=== PATIENT | male | born 1975 | race Caucasian/White ===

== ENCOUNTER 2016-06-11 | Outpatient (CLI) | payer MEDICAID | END 2016-06-11 13:09 | disposition EMS.NT | DX: E16.2 Hypoglycemia, unspecified (principal) ==

== ENCOUNTER 2016-07-29 03:52 | Outpatient (CLI) | payer MEDICAID | END 2016-07-29 03:53 | disposition critical access hospital (66) | DX: R11.2 Nausea with vomiting, unspecified (principal) | CPT/HCPCS: A0425; A0427 ==

== ENCOUNTER 2016-07-29 04:10 | Inpatient (IN) | payer MEDICAID ==
[2016-07-29 04:52] LABS: BASOPHILS # (AUTO) 0.1 10^3/uL (0.0-0.1); BASOPHILS % (AUTO) 0.7 %; EOSINOPHILS % (AUTO) 0.1 %; HCT - HEMATOCRIT 44.5 % (42.0-52.0); HGB - HEMOGLOBIN 15.3 g/dL (14.0-18.0); LYMPHOCYTES # (AUTO) 1.4 10^3/uL (1.5-3.5); LYMPHOCYTES % (AUTO) 9.9 %; MEAN CORPUSCULAR HEMOGLOBIN 30.5 pg (27.0-31.0); MEAN CORPUSCULAR HGB CONC 34.3 g/dL (32.0-36.0); MEAN CORPUSCULAR VOLUME 88.8 fL (80.0-94.0); MONOCYTES # (AUTO) 0.5 10^3/uL (0.0-1.0); MONOCYTES % (AUTO) 3.6 %; NEUTROPHILS # (AUTO) 11.8 10^3/uL (1.5-6.6); NEUTROPHILS % (AUTO) 85.7 %; NUCLEATED RED BLOOD CELLS AUTO 0.1 /100WBC; RED BLOOD COUNT 5.01 10^6/uL (4.70-6.10); RED CELL DISTRIBUTION WIDTH 13.5 % (12.0-15.0); UNCORRECTED WHITE BLOOD COUNT 13.8 x10^3/uL; WHITE BLOOD COUNT 13.8 x10^3/uL (4.8-10.8)
[2016-07-29] MEDS ORDERED: INSULIN REGULAR HUMAN 100 UNIT/1 ML 10 ML MDV ONE ×2 (04:54→07:33)
[2016-07-29] MEDS ORDERED: SODIUM CHLORIDE 0.9% 1,000 ML IV ONE ×4 (05:05→08:33)
[2016-07-29] MEDS ORDERED: INSULIN REGULAR HUMAN 100 UNIT/1 ML 10 ML MDV IVP STA (05:05)
[2016-07-29 05:11] LABS: ALBUMIN/GLOBULIN RATIO 1.6 (1.0-2.2); BILIRUBIN,TOTAL 2.2 mg/dL (0.2-1.0); CALCIUM 9.5 mg/dL (8.5-10.3); CREATININE 1.6 mg/dL (0.6-1.2); POTASSIUM 5.4 mmol/L (3.5-5.0); TOTAL PROTEIN 6.7 g/dL (6.7-8.2)
[2016-07-29 05:51] LABS: BILIRUBIN,URINE NEGATIVE (NEGATIVE); PH,URINE 5.5 PH (5.0-7.5)
[2016-07-29 05:53] LABS: UA CHARGE (STRIP ONLY) YES; UR CULTURE IF IND NOT INDICATED
[2016-07-29 06:50] LABS: VBG PH 7.267 (7.31-7.41)
[2016-07-29 06:51] LABS: VBG BASE EXCESS -9.5 mmol/L (-2 - +2); VBG OXYGEN SATURATION 89.2 % (60-80); VBG TOTAL CO2 17.8 mmol/L (24-29)
[2016-07-29] MEDS ORDERED: INSULIN REGULAR HUMAN 100 UNIT/1 ML 10 ML MDV SUBQ STA ×2 (07:13→07:25)
--- NOTE | 2016-07-29 07:57 | ED Physician Documentation ---
PD HPI ABD PAIN - Stated complaint Stated Complaint: HYPERGLYCEMIA - Chief complaint Chief Complaint: Abd Pain - History obtained from History obtained from: Patient, EMS - History of Present Illness Timing - onset: How many days ago (2) Timing - duration: Days (2) Timing - details: Gradual onset Quality: Other (Mild abdominal discomfort.) Associated symptoms: Nausea, Vomiting. No: Fever, Diarrhea, Dysuria, Chest pain Similar symptoms before: Has not had sx before - Treatment prior to arrival Treatment prior to arrival: Medics established IV access and began administering normal saline IV. Prehospital fingerstick blood sugar was elevated at 517. - Additional information Additional information: The patient is a 40-year-old insulin-dependent diabetic male who presents via ambulance complaining of abdominal discomfort and vomiting. He has been vomiting for the past 2 days. He denies fever, diarrhea, or dysuria. He denies cough or shortness of breath. Paramedics performed fingerstick blood sugar and found it elevated at 517. They established IV access and administered normal saline 450 mL IV. The patient has not taken his Lantus for the past 3 days because he misplaced it and has not been able to find. He denies history of similar symptoms in the past. Review of his medical record reveals previous emergency department visit with hypoglycemia and a hypoglycemic seizure 7 months ago. Review of Systems Constitutional: denies: Fever Eyes: denies: Irritation Nose: denies: Congestion Throat: denies: Sore throat Cardiac: denies: Chest pain / pressure Respiratory: denies: Dyspnea, Cough GI: reports: Abdominal Pain, Nausea, Vomiting. denies: Diarrhea : denies: Dysuria Skin: denies: Rash Musculoskeletal: denies: Back pain Neurologic: denies: Focal weakness, Numbness, Headache PD PAST MEDICAL HISTORY - Past Medical History Past Medical History: Yes Cardiovascular: None Respiratory: None Endocrine/Autoimmune: Type 2 diabetes - Past Surgical History Past Surgical History: Yes Ortho: Amputation (Left BKA.) - Present Medications Home Medications: Ambulatory Orders Medication Instructions Recorded Confirmed Insulin Aspart (Vial) [NovoLOG] 12/25/15 Insulin Glargine [Lantus] 35 units SUBQ DAILY 12/25/15 - Allergies Allergies/Adverse Reactions: Allergies Allergy/AdvReac Type Severity Reaction Status Date / Time methylphenidate HCl * Allergy Unknown Verified 07/29/16 04:22 [From Ritalin] - Social History Does the pt smoke?: Yes Smoking Status: Current every day smoker Does the pt drink ETOH?: No Does the pt have substance abuse?: Yes - Immunizations Immunizations are current?: Yes - POLST Patient has POLST: No PD ED PE NORMAL - Vitals Vital signs reviewed: Yes (Mildly tachycardic initially.) - General General: Alert and oriented X 3, Well developed/nourished, Other (Appears fatigued.) - HEENT HEENT: Atraumatic, EOMI, Moist mucous membranes, Pharynx benign - Neck Neck: Supple, no meningeal sign, No adenopathy, No JVD - Cardiac Cardiac: No murmur, Other (Slightly rapid rate, regular rhythm.) - Respiratory Respiratory: No respiratory distress, Clear bilaterally - Abdomen Abdomen: Soft, Non tender, No organomegaly - Back Back: No CVA TTP - Derm Derm: No rash - Extremities Extremities: No edema, No calf tenderness / cord, Other (Left BKA, with prosthesis.) - Neuro Neuro: Alert and oriented X 3, No motor deficit, Normal speech Results - Vitals Vitals: Vital Signs - 24 hr 07/29/16 07/29/16 07/29/16 04:10 04:44 05:49 Temperature 36.7 C Heart Rate 109 H 110 H 115 H Respiratory 16 16 16 Rate Blood Pressure 121/72 131/72 H 143/85 H O2 Saturation 100 100 99 07/29/16 07/29/16 06:30 07:30 Temperature Heart Rate 117 H 113 H Respiratory 16 20 Rate Blood Pressure 150/86 H 132/73 H O2 Saturation 100 97 Oxygen O2 Source Room air - Labs Labs: Laboratory Tests 07/29/16 07/29/16 07/29/16 04:45 04:45 05:47 WBC 13.8 H RBC 5.01 Hgb 15.3 Hct 44.5 MCV 88.8 MCH 30.5 MCHC 34.3 RDW 13.5 Plt Count 261 MPV 9.0 Neut # 11.8 H Lymph # 1.4 L [place] # 0.5 Eos # 0.0 Baso # 0.1 Absolute Nucleated RBC 0.01 Nucleated RBCs 0.1 VBG pH VBG pCO2 VBG pO2 VBG HCO3 VBG Total CO2 VBG O2 Saturation VBG Base Excess Sodium 133 L Potassium 5.4 H Chloride 93 L Carbon Dioxide 15 L Anion Gap 25.0 H BUN 41 H Creatinine 1.6 H Estimated GFR (MDRD) 48 L Glucose 672 H* Lactic Acid Calcium 9.5 Total Bilirubin 2.2 H AST 35 ALT 86 H Alkaline Phosphatase 106 Total Protein 6.7 Albumin 4.1 Globulin 2.6 Albumin/Globulin Ratio 1.6 Lipase 16 L Urine Color YELLOW Urine Clarity CLEAR Urine pH 5.5 Ur Specific [place] 1.020 Urine Protein NEGATIVE Urine Glucose (UA) >=1000 H Urine Ketones >=80 H Urine Occult Blood NEGATIVE Urine Nitrite NEGATIVE Urine Bilirubin NEGATIVE Urine Urobilinogen 0.2 (NORMAL) Ur Leukocyte Esterase NEGATIVE Ur Microscopic Review NOT INDICATED Urine Culture Comments NOT INDICATED 07/29/16 07/29/16 06:01 06:47 WBC RBC Hgb Hct MCV MCH MCHC RDW Plt Count MPV Neut # Lymph # [place] # Eos # Baso # Absolute Nucleated RBC Nucleated RBCs VBG pH 7.267 L VBG pCO2 37.3 L VBG pO2 56.3 H VBG HCO3 16.6 L VBG Total CO2 17.8 L VBG O2 Saturation 89.2 H VBG Base Excess -9.5 L Sodium Potassium Chloride Carbon Dioxide Anion Gap BUN Creatinine Estimated GFR (MDRD) Glucose Lactic Acid 1.4 Calcium Total Bilirubin AST ALT Alkaline Phosphatase Total Protein Albumin Globulin Albumin/Globulin Ratio Lipase Urine Color Urine Clarity Urine pH Ur Specific [place] Urine Protein Urine Glucose (UA) Urine Ketones Urine Occult Blood Urine Nitrite Urine Bilirubin Urine Urobilinogen Ur Leukocyte Esterase Ur Microscopic Review Urine Culture Comments PD MEDICAL DECISION MAKING - ED course Complexity details: reviewed old records, reviewed results, re-evaluated patient , considered differential, d/w patient ED course: The patient's presentation is significant for hyperglycemia with mild ketoacidosis, with initial blood sugar of 672 and a venous pH of 7.27. Lactate level is within the normal range at 1.4. Chemistry panel reveals an elevated BUN of 41 and a creatinine of 1.6, and a low bicarbonate of 15. His bilirubin is slightly elevated at 2.2. Other liver enzymes are normal with an AST of 35, ALT 86 and an alkaline phosphatase of 106. Lipase is normal at 16. The cause of his hypoglycemia is diabetes without taking his insulin for the past 3 days. There is no evidence to suggest an acute infectious process such as pneumonia or urinary tract infection. Treatment in the emergency department included administration of normal saline 3 L IV, insulin 10 units IV. Over a three-hour period of time his blood sugar went from a high at 672, down to 414. An additional 5 units of regular insulin was administered subcutaneously.Repeat blood sugar one hour later with was 356. The patient remains tachycardic with a pulse of 116. He is drowsy, but awakens easily and is coherent when awakened. I discussed his condition with Dr. Chávez, who will admit him on observation status for further evaluation and treatment. Departure - Departure Disposition: ED Place in Observation Clinical Impression: Dehydration Diabetic ketoacidosis associated with type 2 diabetes mellitus Qualifiers: Diabetes mellitus complication detail: without coma Qualified Code(s): E13.10 - Other specified diabetes mellitus with ketoacidosis without coma Condition: Stable
[2016-07-29] MEDS ORDERED: ONDANSETRON 4 MG/2 ML VIAL IVP PRN (08:46)
[2016-07-29] MEDS ORDERED: ACETAMINOPHEN 325 MG TABLET PO PRN (08:46)
[2016-07-29] MEDS ORDERED: HYDROcod/ACETAM 5/325 MG TABLET PO PRN (08:46)
[2016-07-29] MEDS ORDERED: SODIUM CHLORIDE FLUSH 0.9% 10 ML SYRINGE IVP PRN (08:46)
[2016-07-29] MEDS ORDERED: ONDANSETRON ODT 4 MG TABLET TL PRN (08:46)
[2016-07-29] MEDS ORDERED: INSULIN REGULAR HUMAN 100 UNIT in SODIUM CHLORIDE 0.9% 100ML 99 ML IV SCH (09:00)
[2016-07-29] MEDS: SODIUM CHLORIDE 0.9% 1,000 ML IV SCH ×2 (09:46→12:00)
[2016-07-29 09:59] LABS: VBG BASE EXCESS -7.5 mmol/L (-2 - +2); VBG OXYGEN SATURATION 93.4 % (60-80); VBG PH 7.315 (7.31-7.41); VBG TOTAL CO2 18.9 mmol/L (24-29)
[2016-07-29 10:01] LABS: BASOPHILS # (AUTO) 0.2 10^3/uL (0.0-0.1); BASOPHILS % (AUTO) 0.8 %; EOSINOPHILS % (AUTO) 0.1 %; HCT - HEMATOCRIT 41.1 % (42.0-52.0); HGB - HEMOGLOBIN 14.7 g/dL (14.0-18.0); LYMPHOCYTES # (AUTO) 2.2 10^3/uL (1.5-3.5); LYMPHOCYTES % (AUTO) 11.7 %; MEAN CORPUSCULAR HEMOGLOBIN 30.6 pg (27.0-31.0); MEAN CORPUSCULAR HGB CONC 35.8 g/dL (32.0-36.0); MEAN CORPUSCULAR VOLUME 85.5 fL (80.0-94.0); MEAN PLATELET VOLUME 8.6 fL (7.4-11.4); MONOCYTES # (AUTO) 1.3 10^3/uL (0.0-1.0); MONOCYTES % (AUTO) 6.6 %; NEUTROPHILS # (AUTO) 15.4 10^3/uL (1.5-6.6); NEUTROPHILS % (AUTO) 80.8 %; RED BLOOD COUNT 4.81 10^6/uL (4.70-6.10); RED CELL DISTRIBUTION WIDTH 13.3 % (12.0-15.0); UNCORRECTED WHITE BLOOD COUNT 19.1 x10^3/uL; WHITE BLOOD COUNT 19.1 x10^3/uL (4.8-10.8)
[2016-07-29 10:13] LABS: CALCIUM 8.9 mg/dL (8.5-10.3); CREATININE 1.2 mg/dL (0.6-1.2); MAGNESIUM 1.9 mg/dL (1.7-2.8); POTASSIUM 4.4 mmol/L (3.5-5.0)
[2016-07-29 10:14] LABS: HEMOGLOBIN A1C 1.35 g/dL
[2016-07-29 11:24] LABS: CALCIUM 8.6 mg/dL (8.5-10.3); CREATININE 1.2 mg/dL (0.6-1.2); MAGNESIUM 1.7 mg/dL (1.7-2.8); POTASSIUM 3.9 mmol/L (3.5-5.0)
--- NOTE | 2016-07-29 12:23 | HISTORY & PHYSICAL EXAMINATION ---
DATE OF ADMISSION: 07/29/2016 PRIMARY CARE PROVIDER: Anthony Rogel ADMITTING PROVIDER: Melissa Chávez MD CHIEF COMPLAINT: Nausea and vomiting in a patient who is a type 1 diabetic. HISTORY OF PRESENT ILLNESS: The patient is a 40-year-old white male who has type 1 diabetes since the age of 20. He has neuropathy. Denies retinopathy. He says that he usually takes good care of himself and that his sugar is usually under control. There are no glycosylated hemoglobin in the EMR for me to compare to, other than the one today, which is 10.1. He has broken up with his girlfriend. He has been living with her for over a year. He has been sad. D enies suicidal ideation, denies hallucinations. In his adjustment reaction, he has become depressed a nd "not paying attention to things" so he has misplaced his Concerta and his insulin, and has not had them for several days. Definitely misplacing the Concerta allowed his attention to get even more non focused. He started having nausea, fatigue a few days ago, yesterday started having abdominal pain an d with increasing retching. Overnight he has been having nonstop vomiting. He was seen in the emergen cy room by Dr. Herrera where he was hyponatremic, hyperkalemic, an anion gap of 25, and a random glucos e of 672. He received 3-4 liters of IV fluids in the emergency room. Repeat labs showed an anion gap of 14, and a random glucose of 345. He did receive insulin 10 units IV push once, then subcutaneous i nsulin twice with close to 3 liters IV wide open. This has allowed the sugar to come down to 345. Since he is still nauseated, unable to really take care of himself from lethargy and fatigue, sugars are still high, the patient is now admitted for DKA. PAST MEDICAL HISTORY 1. Type 1 diabetes mellitus, present since age 20. 2. ADD. 3. Fracture of left ankle. No treatment for quite some time as he walked around on it and resulted in infection and ended up with a left BKA. 4. History of MRSA of left finger, status post debridement and IV antibiotics. ALLERGIES: METHYLPHENIDATE. MEDICATIONS 1. Methylphenidate. Unclear as to why it is listed as an allergy when he takes methylphenidate extend ed release 72 mg daily. 2. Lantus 35 units subcutaneous daily. 3. NovoLog sliding scale insulin a.c. t.i.d. with meals, not taken for several days as well as the La ntus. SOCIAL HISTORY: Used to do cannabis, states he has not done it in a long time. Denies recreational mendoza bstance abuse in the form of cocaine, heroin, LSD, methamphetamines. He has smoked since the age of [age] and does up to 1 pack per day. Trying to stop and he says that October 18 is his drop date. He l ruth in his own apartment and is independent with regards to activities of daily living, managing his finances and transportation. He was born in [place], was an [employer] br[employer] and lived all ov er the world. Not , has no children. FAMILY HISTORY: He is adopted and he does not know his parents. He has no siblings nor do es he have any children. REVIEW OF SYSTEMS GENERAL: Denies any generalized constitutional complaints of fever, chills, sweats, weight loss. ENT: Denies glaucoma or cataracts. Denies deafness. Denies bad dentition. No facial droop, no slurred speech, no headaches, no blurred vision. PULMONARY: Denies coughing, wheezing, chronic bronchitis history, allergy history. No chest congestio n. CARDIAC: Denies edema, chest pain, palpitations. He has no history of valvular heart disease. He does note that over the last few years he has had a definite decrease in cardiopulmonary endurance just b ecause he does not do very much. So now when he tries to do anything, he gets easily fatigued. GASTROINTESTINAL: Has bad indigestion at times. No history of ulcers, diarrhea, abdominal pain, blood in his stool. GENITOURINARY: Decreased stream, increased frequency but that is chronic for him, says from his diabe sophie. He has no hematuria, no dysuria. No history of sexually transmitted diseases. JOINTS: Hurts all the time. He feels like he has juvenile rheumatoid arthritis, but has never been offered any treatmen t other than aspirin. Everything hurts. His neck and hands, elbows, shoulders, knees, hips. SKIN: Has severe dry skin, especially over his kneecaps that get really rough and thick, and he uses a prescribed cream for that. Denies any new lesions, rashes. PSYCHIATRIC: While he is sad and definitely depressed about losing his girlfriend, he is very clear s everal times that he is not suicidal. No hallucinations. DIRECTIONAL DRILLER: Denies history of memory loss. Had a seizure last summer because he did not eat and took his ins ulin so his sugar bottomed to 30 and he seized. He has not done that since. He gets lightheaded when he gets up and walks too fast and his vision will start to black out, but he sits down. He has never formally passed out with that. No memory loss. PHYSICAL EXAMINATION GENERAL: I am seeing the patient in ICU after he has been transferred from the emergency room. He is sleepy, cranky and really wants to get some sleep since he has been up all night long vomiting. Never theless, he is alert, oriented, able to follow 2-step commands, no slurred speech and a lucid histori an. He is a very thin, slender, pale, young white male who looks older than stated age. VITAL SIGNS: Temperature is 37.2, pulse 114, blood pressure 162/105, respirations 13 and nonlabored, and he is 98% on room air. HEAD AND NECK: Unshaven face, male pattern baldness. HEENT: Pupils are reactive. Sclerae are nonicteric, not muddy. Tongue and oral mucosa are quite dry. Lips are cracked, but no lesions. NECK: Shotty adenopathy without goiter or bruits. LUNGS: Clear to auscultation and percussion. He is not tachypneic. No crackles, rhonchi, or wheezing. CARDIOVASCULAR: PMI is tachycardic with a regular rate and rhythm. PMI normally placed. No murmur. ABDOMEN: Firm musculature, there is no obesity. No hepatomegaly. Normal bowel sounds. No tenderness. EXTREMITIES: Very thin, almost gaunt. Right leg has no clubbing, cyanosis, or edema. The skin over hi s knees is very rough and thick. He has a left BKA and the stump is clean and intact. He has a good d orsalis pedis pulse on the right leg. NEUROLOGICAL: He is alert and oriented to person, place and time. Follows 2-step commands. He has no focal deficits. No tremors. No cellularity. LABORATORIES: Initial sodium at 4:45 this morning was 133, potassium 5.4, BUN 41, creatinine 1.6, ani on gap 25, carbon dioxide 15, random glucose 672, lactic acid 1.4, total bilirubin 2.2, AST 3.5, ALT 86. A1c is 10.1%. With repeat after the fluids and IV push insulin and subcutaneous insulin, his sodi um is 137, potassium 4.4, carbon dioxide 19, anion gap 14, BUN 33, creatinine 1.2. Random glucose now 345. Venous blood gas is 7.26 with a bicarbonate of 16.6, base excess -9.5. After the aggressive gabby atment, venous blood gas is now 7.3, bicarbonate 17.8, base excess -7.5. White cell count was 13.8 an d now 19.1. Hemoglobin 15.3, 44.5. Urinalysis has glucosuria and ketonuria, but no infection. ASSESSMENT/PLAN 1. Diabetic ketoacidosis (DKA), type 1, in an uncontrolled diabetic who is insulin requiring. DKA is a result of noncompliance from lack of medication. We will place in ICU for insulin drip. Monitor wit h electrolyte protocol and supplement his electrolytes as needed with calcium, magnesium, phosphorus, as well as potassium being monitored. Transition to his regular schedule of Lantus and short-acting insulin once at goal. 2. Dehydration on physical exam with elevation of BUN and creatinine. Even though he has received 3-1 /2, close to 4 liters, oral exam still shows significant dehydration. BUN and creatinine have improve d. 3. Hypertension. No history of hypertension in the past. Not on any antihypertensives. Start TIFFANIE inhi bitor. Check urine tox screen. 4. History of methicillin-resistant Staphylococcus aureus (MRSA). No treatment at this time, but jeannie cy implemented with regard to MRSA positive patients. 5. Deep venous thrombosis prophylaxis. KALIE silveira. 6. FULL CODE STATUS. JOB #: [id number] EXT JOB #:[id number]
[2016-07-29 13:25] LABS: CALCIUM 8.4 mg/dL (8.5-10.3); CREATININE 0.9 mg/dL (0.6-1.2); MAGNESIUM 1.7 mg/dL (1.7-2.8); POTASSIUM 3.8 mmol/L (3.5-5.0)
[2016-07-29] MEDS: SODIUM CHLORIDE FLUSH 0.9% 10 ML SYRINGE IVP SCH ×2 (13:47→22:11)
[2016-07-29] MEDS ORDERED: DEXTROSE GEL 37.5 GM TUBE PO PRN (14:23)
[2016-07-29] MEDS ORDERED: DEXTROSE 5% 1,000 ML IV PRN (14:23)
[2016-07-29] MEDS ORDERED: DEXTROSE 50% ABBOJECT 25 GM/50 ML SYRINGE IVP PRN (14:23)
[2016-07-29] MEDS ORDERED: GLUCAGON 1 MG/ML VIAL SUBQ PRN (14:23)
[2016-07-29] MEDS ORDERED: POTASSIUM CHLOR 10 MEQ/100 ML 100 ML IV SCH (15:00)
[2016-07-29] MEDS ORDERED: POTASSIUM CHLORIDE INJ 40 MEQ in SODIUM CHLORIDE 0.9% 1,000 ML IV SCH ×2 (15:00→16:00)
[2016-07-29] MEDS: INSULIN GLARGINE 300 UNIT/3 ML PEN SUBQ SCH ×2 (15:04→22:09)
[2016-07-29] MEDS: INSULIN ASPART 300 UNIT/3 ML PEN SUBQ SCH ×2 (16:45→22:08)
--- NOTE | 2016-07-29 18:34 | PROVIDER PROGRESS NOTE ---
Subjective - Prog Note Date Prog Note Date: 07/29/16 Prog Note Time: 18:32 - Subjective Pt reports feeling: Improved Subjective: he's been able to sleep. off insulin drip this afternoon. glucose 87 before dinner right now. iVF rate dropped from 0.9 NS at 500 cc/hr to 0.9 with 40 meq of K at 100 cc/hr. Received over 4 liters total and has voided 2 times up to 700 cc. BP is high. Now he tells RN that he's been noncompliant for a MONTH, not just this week. Also has Rx for lisinopril that he never filled and isn't on. Current Medications - Current Medications Current Medications: Active Medications Acetaminophen (Tylenol) 650 mg PO Q4H PRN PRN Reason: Pain 1 to 4 Last Admin: 07/29/16 17:10 Dose: 650 mg Acetaminophen/Hydrocodone Bitart ([place] 5/325) 1 tab PO Q4H PRN PRN Reason: Pain 5 to 7 Dextrose (Dextrose) 20 - 50 ml IVP ONCE PRN PRN Reason: BG Less than 70 Stop: 08/28/16 14:22 Glucagon (Glucagen) 1 mg SUBQ ONCE PRN PRN Reason: BG <70 and no PO or IV access Stop: 08/28/16 14:22 Glucose (Glutose) 37.5 - 75 gm PO ONCE PRN PRN Reason: BG Less than 70 Stop: 08/28/16 14:22 Dextrose (D5w) 1,000 mls @ 100 mls/hr IV .Q10H PRN PRN Reason: BG 50 - 69 Stop: 08/28/16 14:22 Potassium Chloride 40 meq/ (Sodium Chloride) 1,020 mls @ 100 mls/hr IV .[id number] [facility] Stop: 07/30/16 02:11 Last Admin: 07/29/16 16:09 Dose: 100 mls/hr Insulin Aspart (Novolog) 3 - 11 unit SUBQ 0800,1200,1700,2100 [facility] PRN Reason: Protocol Last Admin: 07/29/16 16:45 Dose: Not Given Insulin Glargine (Lantus Solostar) 35 unit SUBQ QPM [facility] Last Admin: 07/29/16 15:04 Dose: 35 unit Lisinopril (Zestril) 10 mg PO DAILY [facility] Ondansetron HCl (Zofran Odt) 4 mg TL Q6H PRN PRN Reason: Nausea / Vomiting Ondansetron HCl (Zofran Inj) 4 mg IVP Q6H PRN PRN Reason: Nausea / Vomiting Sodium Chloride (Normal Saline Flush 0.9%) 10 ml IVP PRN PRN PRN Reason: NEEDED PER PROVIDER ORDERS Sodium Chloride (Normal Saline Flush 0.9%) 10 ml IVP Q8HR [facility] Last Admin: 07/29/16 13:47 Dose: 10 ml Insulin Aspart (Vial) [NovoLOG] 7 - 15 units SUBQ TIDWM 12/25/15 Insulin Glargine [Lantus] 35 units SUBQ DAILY 12/25/15 Methylphenidate HCl [Concerta] 72 mg PO DAILY 07/29/16 Objective - Vital Signs/Intake & Output Reviewed Vital Signs: Yes Vital Signs: Vital Signs Temp Pulse Resp BP Pulse Ox 07/29/16 18:00 98 14 159/99 H 97 07/29/16 16:47 109 H 16 146/82 H 99 07/29/16 16:00 37.2 C 102 H 14 164/97 H 98 07/29/16 15:00 107 H 16 143/84 H 98 Intake & Output: Intake & Output 07/26/16 07/27/16 07/28/16 07/29/16 22:59 22:59 23:59 23:59 Intake Total 4410 Output Total 1550 Balance 2860 - Objective General Appearance: positive: No acute distress, Alert Eyes Bilateral: positive: PERRL ENT: positive: Dry mucous membranes Neck: positive: No JVD Respiratory: positive: Chest non-tender. negative: Wheezes, Rales, Rhonchi Cardiovascular: positive: Regular rate & rhythm, Tachycardia Abdomen: positive: Non-tender, No organomegaly, Nml bowel sounds, No distention Skin: positive: Warm, Dry Extremities: positive: Non-tender, Full ROM, No pedal edema Neurologic/Psychiatric: positive: Oriented x3, CN's nml (2-12), Motor nml - Lab Results Fish Bones: 07/29/16 09:53 07/29/16 13:10 Other Labs: Lab Results x24hrs 07/29/16 07/29/16 07/29/16 Range/Units 13:10 11:56 10:58 WBC (4.8-10.8) x10^3/uL RBC (4.70-6.10) 10^6/uL Hgb (14.0-18.0) g/dL Hct (42.0-52.0) % MCV (80.0-94.0) fL MCH (27.0-31.0) pg MCHC (32.0-36.0) g/dL RDW (12.0-15.0) % Plt Count (130-450) 10^3/uL MPV (7.4-11.4) fL Neut # (1.5-6.6) 10^3/uL Lymph # (1.5-3.5) 10^3/uL [place] # (0.0-1.0) 10^3/uL Eos # (0.0-0.7) 10^3/uL Baso # (0.0-0.1) 10^3/uL Absolute Nucleated RBC x10^3/uL Nucleated RBCs /100WBC VBG pH (7.31-7.41) VBG pCO2 (41-51) mmHg VBG pO2 (25-47) mmHg VBG HCO3 (23-28) mmol/L VBG Total CO2 (24-29) mmol/L VBG O2 Saturation (60-80) % VBG Base Excess (-2 - +2) mmol/L Sodium 137 137 (135-145) mmol/L Potassium 3.8 3.9 (3.5-5.0) mmol/L Chloride 106 104 (101-111) mmol/L Carbon Dioxide 22 19 L (21-32) mmol/L Anion Gap 9.0 14.0 H (6-13) BUN 26 H 31 H (6-20) mg/dL Creatinine 0.9 1.2 (0.6-1.2) mg/dL Estimated GFR (MDRD) 94 67 L (>89) Glucose 169 H 228 H 284 H (70-100) mg/dL Glycated Hemoglobin (4.6-6.2) % Estim Average Glucose (70-100) Calcium 8.4 L 8.6 (8.5-10.3) mg/dL Magnesium 1.7 1.7 (1.7-2.8) mg/dL 07/29/16 07/29/16 07/29/16 Range/Units 09:53 09:53 09:53 WBC (4.8-10.8) x10^3/uL RBC (4.70-6.10) 10^6/uL Hgb (14.0-18.0) g/dL Hct (42.0-52.0) % MCV (80.0-94.0) fL MCH (27.0-31.0) pg MCHC (32.0-36.0) g/dL RDW (12.0-15.0) % Plt Count (130-450) 10^3/uL MPV (7.4-11.4) fL Neut # (1.5-6.6) 10^3/uL Lymph # (1.5-3.5) 10^3/uL [place] # (0.0-1.0) 10^3/uL Eos # (0.0-0.7) 10^3/uL Baso # (0.0-0.1) 10^3/uL Absolute Nucleated RBC x10^3/uL Nucleated RBCs /100WBC VBG pH 7.315 (7.31-7.41) VBG pCO2 35.7 L (41-51) mmHg VBG pO2 65.6 H (25-47) mmHg VBG HCO3 17.8 L (23-28) mmol/L VBG Total CO2 18.9 L (24-29) mmol/L VBG O2 Saturation 93.4 H (60-80) % VBG Base Excess -7.5 L (-2 - +2) mmol/L Sodium 137 (135-145) mmol/L Potassium 4.4 (3.5-5.0) mmol/L Chloride 104 (101-111) mmol/L Carbon Dioxide 19 L (21-32) mmol/L Anion Gap 14.0 H (6-13) BUN 33 H (6-20) mg/dL Creatinine 1.2 (0.6-1.2) mg/dL Estimated GFR (MDRD) 67 L (>89) Glucose 345 H (70-100) mg/dL Glycated Hemoglobin 10.1 H (4.6-6.2) % Estim Average Glucose 243 H (70-100) Calcium 8.9 (8.5-10.3) mg/dL Magnesium 1.9 (1.7-2.8) mg/dL 07/29/16 Range/Units 09:53 WBC 19.1 H (4.8-10.8) x10^3/uL RBC 4.81 (4.70-6.10) 10^6/uL Hgb 14.7 (14.0-18.0) g/dL Hct 41.1 L (42.0-52.0) % MCV 85.5 (80.0-94.0) fL MCH 30.6 (27.0-31.0) pg MCHC 35.8 (32.0-36.0) g/dL RDW 13.3 (12.0-15.0) % Plt Count 254 (130-450) 10^3/uL MPV 8.6 (7.4-11.4) fL Neut # 15.4 H (1.5-6.6) 10^3/uL Lymph # 2.2 (1.5-3.5) 10^3/uL [place] # 1.3 H (0.0-1.0) 10^3/uL Eos # 0.0 (0.0-0.7) 10^3/uL Baso # 0.2 H (0.0-0.1) 10^3/uL Absolute Nucleated RBC 0.00 x10^3/uL Nucleated RBCs 0.0 /100WBC VBG pH (7.31-7.41) VBG pCO2 (41-51) mmHg VBG pO2 (25-47) mmHg VBG HCO3 (23-28) mmol/L VBG Total CO2 (24-29) mmol/L VBG O2 Saturation (60-80) % VBG Base Excess (-2 - +2) mmol/L Sodium (135-145) mmol/L Potassium (3.5-5.0) mmol/L Chloride (101-111) mmol/L Carbon Dioxide (21-32) mmol/L Anion Gap (6-13) BUN (6-20) mg/dL Creatinine (0.6-1.2) mg/dL Estimated GFR (MDRD) (>89) Glucose (70-100) mg/dL Glycated Hemoglobin (4.6-6.2) % Estim Average Glucose (70-100) Calcium (8.5-10.3) mg/dL Magnesium (1.7-2.8) mg/dL Assessment/Plan - Problem List (1) DKA, type 1, not at goal Impression: improved. continue lantus and SS novolog ac TID now that he is eating. (2) Dehydration Impression: voiding nicely but still tachy. acidosis have resolved on labs. CPM with 100 cc/ hr (3) HTN (hypertension) Impression: lisinopril started. Qualifiers: Hypertension type: essential hypertension Qualified Code(s): I10 - Essential (primary) hypertension
[2016-07-29] MEDS: LISINOPRIL 5 MG TABLET PO SCH (19:24)
[2016-07-30 04:54] LABS: BASOPHILS % (AUTO) 0.7 %; EOSINOPHILS % (AUTO) 0.7 %; HCT - HEMATOCRIT 42.9 % (42.0-52.0); HGB - HEMOGLOBIN 15.1 g/dL (14.0-18.0); LYMPHOCYTES % (AUTO) 29.4 %; MEAN CORPUSCULAR HEMOGLOBIN 30.3 pg (27.0-31.0); MEAN CORPUSCULAR HGB CONC 35.2 g/dL (32.0-36.0); MEAN CORPUSCULAR VOLUME 85.9 fL (80.0-94.0); MEAN PLATELET VOLUME 7.8 fL (7.4-11.4); NEUTROPHILS % (AUTO) 63.2 %; RED CELL DISTRIBUTION WIDTH 13.3 % (12.0-15.0); UNCORRECTED WHITE BLOOD COUNT 17.4 x10^3/uL; WHITE BLOOD COUNT 17.4 x10^3/uL (4.8-10.8)
[2016-07-30 05:08] LABS: BUN - BLOOD UREA NITROGEN 15 mg/dL (6-20); CALCIUM 8.7 mg/dL (8.5-10.3); CARBON DIOXIDE - CO2 27 mmol/L (21-32); CHLORIDE 107 mmol/L (101-111); CREATININE 0.7 mg/dL (0.6-1.2); GFR - MDRD 126 (>89); MAGNESIUM 1.7 mg/dL (1.7-2.8); POTASSIUM 2.6 mmol/L (3.5-5.0); SODIUM 139 mmol/L (135-145)
[2016-07-30 05:09] LABS: BAND NEUTROPHILS % (MANUAL) 0 %; GLUCOSE 30 mg/dL (70-100)
[2016-07-30 05:42] LABS: EOSINOPHILS % (MANUAL) 2 %; LYMPHOCYTES % (MANUAL) 33 %; NEUTROPHILS % (MANUAL) 62 %; TOTAL CELLS COUNTED 100
[2016-07-30 05:43] LABS: NP AUTO DIFFERENTIAL? YES; NP MAN DIFFERENTIAL? NO; PLATELET ESTIMATE, MANUAL NORMAL (130-450,000) (NORMAL); PLATELET MORPHOLOGY NORMAL APPEARANCE (NORMAL)
[2016-07-30] MEDS: NEUTRA-PHOS 250 MG TABLET PO SCH ×2 (06:32→09:19)
[2016-07-30] MEDS: MAGNESIUM OXIDE 400 MG TABLET PO SCH ×2 (06:32→12:44)
[2016-07-30] MEDS: POTASSIUM CHLORIDE 20 MEQ TABLET PO SCH ×2 (06:32→10:23)
[2016-07-30] MEDS: SODIUM CHLORIDE FLUSH 0.9% 10 ML SYRINGE IVP SCH ×2 (06:32→09:22)
[2016-07-30] MEDS: INSULIN ASPART 300 UNIT/3 ML PEN SUBQ SCH ×2 (07:45→11:42)
[2016-07-30] MEDS: METHYLPHENIDATE 5 MG TABLET PO SCH ×2 (09:19→14:38)
[2016-07-30] MEDS: LISINOPRIL 5 MG TABLET PO SCH (09:19)
--- NOTE | 2016-07-30 13:52 | Discharge Plan ---
Discharge Plan Disposition: 01 Home, Self Care Condition: Good Prescriptions: Methylphenidate HCl [Concerta] 72 mg PO DAILY #20 tab.er.24 Diet: Diabetic Activity Restrictions: Activity as Tolerated Shower Restrictions: No Driving Restrictions: No Weight Bearing: Full Weight Additional Instructions or Follow Up instructions: Monitor your glucose closely 4 times a day for at least the next week. See your PCP in the next 7-10 days. Call for an appt. Eat well and exercise regularly for better intermediate health. No Smoking: If you smoke, Please STOP! Call for help. Follow-up with: SHIVA ONEAL [Primary Care Provider] - 1 Week
[2016-07-30 14:37] LABS: CALCIUM 8.8 mg/dL (8.5-10.3); CREATININE 0.7 mg/dL (0.6-1.2); POTASSIUM 4.1 mmol/L (3.5-5.0)
[2016-07-30 16:10] VITALS: BP 128/76
--- NOTE | 2016-07-30 18:14 | DISCHARGE SUMMARY ---
DATE OF ADMISSION: 07/29/2016 DATE OF DISCHARGE: 07/30/2016 PRIMARY CARE PHYSICIAN: Clemencia Chandra, [facility]. ADMISSION DIAGNOSES: 1. Diabetic ketoacidosis. 2. Dehydration. 3. Hypertension. 4. History of Methicillin resistant Staphylococcus aureus. DISCHARGE DIAGNOSES: 1. Diabetic ketoacidosis, resolved. 2. Diabetes, poor control. 3. Dehydration, resolved. 4. Hypertension, controlled with medication. 5. Attention deficit disorder. SPECIAL PROCEDURES: None. CONSULTATIONS: None. HOSPITAL COURSE AND MANAGEMENT: The patient's initial presentation, hospital evaluation, the emergenc y department and hospitalist plan are well described in the history and physical, see copy of same. SUMMARY: The patient is a 40-year-old white male who has diabetes since the age of 20. He has neuropa thy. He comes in with elevated A1c, a pH 726 with a bicarbonate of 16, base excess -9.5. The patient' s glucose was 672. The patient had an insulin drip started and his glucose improved. His ketoacidosis improved overnight. The next morning he was noted to be hypoglycemic, had replacement, was transferr ed to subcutaneous insulin, sliding scale as well as Lantus and he was in the 200s. His ketoacidosis did not rebound. The patient had a potassium of 2.6 in the a.m. and 4.1 before discharge. The patient was therefore discharged on his usual medicines, a 20-day supply of Concerta 72 mg XL was written be cause he lost his prescription. ALLERGIES: PROMETHAZINE. HOME MEDICATIONS: 1. Novolog before meals 7 to 50 units t.i.d. based on his glucose. 2. Lantus 35 mg daily. 3. Concerta 72 mg daily. The patient is to followup with above his resident physician, Clemencia Chandra, also with the endocrine department both at [facility]. The patient is to meticulously monitor his sugars at least the next week f our times a day. DISCHARGE EXAMINATION: VITAL SIGNS: 36.7, 92, 120/69, 15, 99 on room air saturation. EYES: EOMs within normal limits, PERRL, nonicteric. MOUTH AND THROAT: Moist mucous membranes. No other pathology mouth. NECK: Supple. Nontender. No lymphadenopathy, no thyromegaly. CHEST WALL: Nontender. Symmetric. HEART: Normal sinus rhythm. No murmur. LUNGS: Clear to auscultation bilaterally. ABDOMEN: Soft, nontender, normal bowel sounds. No hepatosplenomegaly. NEUROLOGICAL: Cognition intact. Cranial nerves intact. LABORATORY DATA: He has a white count of 17,000, down from 19,000, 15 and 43 hemoglobin and hematocri t, platelets 267. The patient's sodium on discharge 137, potassium 4.1, chloride 91, CO2 is 13, BUN 1 4, creatinine is 0.7. Glucose is 226. He had been hypoglycemic in the a.m., calcium is 8.8. The patient is discharged home in improved condition. Time spent on discharge activity, counseling the patient, family consults with his mother, as well as the examination, and collaboration with case management and nursing staff 35 minutes. The patient agreed with plan on date of discharge as noted above. JOB #: [id number] EXT JOB #:[id number]
== END 2016-07-30 16:33 | disposition home or self-care (01) | DRG 638 ==
LOC: EDUNIT# → ED 04:10 → SUPCPDRO 04:10 → ICU 08:46
PROVIDERS: ADMIT Specialist; ATTEND Internal Medicine
DX: E10.10 Type 1 diabetes mellitus with ketoacidosis without coma (principal); E87.1 Hypo-osmolality and hyponatremia; E86.0 Dehydration; I10 Essential (primary) hypertension; F98.8 Other specified behavioral and emotional disorders with onset usually occurring in childhood and adolescence; T43.636A Underdosing of methylphenidate, initial encounter; T38.3X6A Underdosing of insulin and oral hypoglycemic [antidiabetic] drugs, initial encounter; E87.5 Hyperkalemia; E10.40 Type 1 diabetes mellitus with diabetic neuropathy, unspecified; E10.649 Type 1 diabetes mellitus with hypoglycemia without coma; F43.21 Adjustment disorder with depressed mood; F17.210 Nicotine dependence, cigarettes, uncomplicated; Z91.138 Patient's unintentional underdosing of medication regimen for other reason; Z88.8 Allergy status to other drugs, medicaments and biological substances; Z63.0 Problems in relationship with spouse or partner; Z79.4 Long term (current) use of insulin; Z89.512 Acquired absence of left leg below knee; Z86.14 Personal history of Methicillin resistant Staphylococcus aureus infection
CPT/HCPCS: 36415; 80048; 80053; 81001; 81003; 82803; 82947; 83036; 83605; 83690; 83735; 84100; 85025; 87086; 87150; 93005; 96360; 96361; 99285

== ENCOUNTER 2016-08-17 01:19 | Outpatient (CLI) | payer MEDICAID | END 2016-08-17 01:20 | disposition EMS.NT | DX: E11.649 Type 2 diabetes mellitus with hypoglycemia without coma (principal) ==

== ENCOUNTER 2016-08-30 15:25 | Outpatient (CLI) | payer MEDICAID | END 2016-08-30 23:59 | disposition EMS.NT | DX: E16.2 Hypoglycemia, unspecified (principal) ==

== ENCOUNTER 2016-10-22 23:30 | Outpatient (CLI) | payer MEDICAID | END 2016-10-22 23:31 | disposition EMS.NT | LOC: EMS 23:30 | PROVIDERS: ATTEND Surgery | DX: E11.649 Type 2 diabetes mellitus with hypoglycemia without coma (principal) ==

== ENCOUNTER 2017-04-14 11:56 | Outpatient (CLI) | payer MEDICAID | END 2017-04-14 11:57 | disposition EMS.NT | LOC: EMS 11:56 | PROVIDERS: ATTEND Surgery | DX: R40.4 Transient alteration of awareness (principal) ==

== ENCOUNTER 2017-06-07 23:23 | Outpatient (CLI) | payer MEDICAID | END 2017-06-07 23:24 | disposition EMS.NT | LOC: EMS 23:23 | PROVIDERS: ATTEND Surgery | DX: R46.4 Slowness and poor responsiveness (principal); R73.09 Other abnormal glucose ==

== ENCOUNTER 2019-01-06 08:52 | Outpatient (CLI) | payer MEDICAID | END 2019-01-06 08:53 | disposition EMS.NT | LOC: EMS 08:52 | PROVIDERS: ATTEND Surgery | DX: R41.0 Disorientation, unspecified (principal); R73.09 Other abnormal glucose ==

== ENCOUNTER 2020-03-03 07:00 | Outpatient (CLI) | payer MEDICAID ==
[2020-03-03 18:33] LABS: BASOPHILS # (AUTO) 0.1 10^3/uL (0.0-0.1); EOSINOPHILS # (AUTO) 0.6 10^3/uL (0.0-0.7); EOSINOPHILS % (AUTO) 7.4 %; HGB - HEMOGLOBIN 14.9 g/dL (14.0-18.0); LYMPHOCYTES # (AUTO) 1.7 10^3/uL (1.5-3.5); LYMPHOCYTES % (AUTO) 20.8 %; MEAN CORPUSCULAR HEMOGLOBIN 30.9 pg (27.0-31.0); MEAN CORPUSCULAR VOLUME 85.9 fL (80.0-94.0); MEAN PLATELET VOLUME 10.2 fL (7.4-11.4); MONOCYTES # (AUTO) 0.6 10^3/uL (0.0-1.0); NEUTROPHILS % (AUTO) 62.6 %; PLT - PLATELET COUNT 203 10^3/uL (130-450); RED BLOOD COUNT 4.82 10^6/uL (4.70-6.10); RED CELL DISTRIBUTION WIDTH 12.7 % (12.0-15.0)
[2020-03-03 19:33] LABS: ALBUMIN 4.1 g/dL (3.2-5.5); ALBUMIN/GLOBULIN RATIO 1.5 (1.0-2.2); BILIRUBIN,TOTAL 1.1 mg/dL (0.2-1.0); CALCIUM 9.6 mg/dL (8.5-10.3); CREATININE 1.1 mg/dL (0.6-1.2); TOTAL PROTEIN 6.8 g/dL (6.7-8.2)
[2020-03-03 20:09] LABS: HEMOGLOBIN A1c% 6.9 % (4.27-6.07)
== END 2020-03-03 23:59 | disposition home or self-care (01) ==
LOC: LAB.WCP 07:00
PROVIDERS: ATTEND Physician Assistant
DX: I10 Essential (primary) hypertension (principal); E10.9 Type 1 diabetes mellitus without complications
CPT/HCPCS: 36415; 80053; 83036; 85025

== ENCOUNTER 2020-08-03 08:00 | Outpatient (CLI) | payer MEDICAID ==
[2020-08-03 18:49] LABS: ALBUMIN/GLOBULIN RATIO 1.6 (1.0-2.2); BILIRUBIN,TOTAL 1.1 mg/dL (0.2-1.0); CALCIUM 9.3 mg/dL (8.5-10.3); CREATININE 1.1 mg/dL (0.6-1.2); POTASSIUM 4.3 mmol/L (3.5-5.0); TOTAL PROTEIN 6.5 g/dL (6.7-8.2)
[2020-08-03 19:04] LABS: CREATININE,URINE 123.8 mg/dL; MICROALBUM/CREATININE RATIO,UR 56.5 ug/mg (<30.0)
[2020-08-03 20:01] LABS: ESTIMATED AVERAGE GLUCOSE 166 mg/dL (70-100); HEMOGLOBIN A1c% 7.4 % (4.27-6.07)
== END 2020-08-03 23:59 | disposition home or self-care (01) ==
LOC: LAB.WCP 08:00
PROVIDERS: ATTEND Physician Assistant Medical
DX: E10.9 Type 1 diabetes mellitus without complications (principal); Z79.4 Long term (current) use of insulin
CPT/HCPCS: 80053; 82043; 82570; 83036

== ENCOUNTER 2020-11-19 17:44 | Outpatient (CLI) | payer MEDICAID | END 2020-11-19 17:45 | disposition EMS.NT | LOC: EMS 17:44 | DX: R56.9 Unspecified convulsions (principal) ==

== ENCOUNTER 2020-12-04 13:17 | Outpatient (CLI) | payer MEDICAID ==
--- NOTE | 2020-12-04 14:07 | XRAY Report ---
PROCEDURE: Shoulder 3 View RT INDICATIONS: RIGHT SHOULDER IMPINGEMENT TECHNIQUE: 3 views of the shoulder were acquired. COMPARISON: MRI of shoulder dated 09/21/2014. FINDINGS: Bones: No fractures or dislocations. Mild to moderate acromioclavicular joint and glenohumeral joint osteophytic changes are seen. Nonspecific subcortical cyst formations involving greater tuberosity o f humeral head are seen. No suspicious bony lesions. Visualized ribs appear intact. Soft tissues: No suspicious soft tissue calcifications. 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 No fracture or dislocation. Normal shoulder alignment. Reviewed by: Abram Gresham MD on 12/04/2020 2:05 PM PDT Approved by: Abram Gresham MD on 12/04/2020 2:05 PM PDT Station ID: [id number]
== END 2020-12-04 13:18 | disposition home or self-care (01) ==
LOC: DI 13:17
PROVIDERS: ATTEND Physician Assistant Medical
DX: M75.41 Impingement syndrome of right shoulder (principal); M19.011 Primary osteoarthritis, right shoulder

== ENCOUNTER 2023-04-21 08:00 | Outpatient (CLI) | payer MEDICAID ==
--- NOTE | 2023-04-21 19:21 | XRAY Report ---
PROCEDURE: Shoulder 3 View RT INDICATIONS: RIGHT SHOULDER PAIN TECHNIQUE: 4 views of the shoulder were acquired. COMPARISON: None. FINDINGS: Bones: No fractures or dislocations. No suspicious bony lesions. Visualized ribs appear intact. A C joint hypertrophy with moderate downward going component. Subchondral cystic change at the insertio n of the supraspinatus tendon suggest supraspinatus tendinopathy. Soft tissues: No suspicious soft tissue calcifications. The visualized lungs are within normal limi ts. IMPRESSION: No acute bony abnormality. Supraspinatus tendinopathy, AC joint hypertrophy with moderate downward go ing component, which can correlate with impingement. Reviewed by: Silverio John MD on 04/21/2023 7:19 PM PST Approved by: Silverio John MD on 04/21/2023 7:19 PM PST Station ID: [id number]
== END 2023-04-21 23:59 | disposition home or self-care (01) ==
LOC: DI.WOS 08:00
PROVIDERS: ATTEND Physician Assistant Surgical
DX: M75.41 Impingement syndrome of right shoulder (principal)

== ENCOUNTER 2023-07-04 10:39 | Outpatient (CLI) | payer MEDICAID ==
[2023-07-04 18:12] LABS: BASOPHILS # (AUTO) 0.1 10^3/uL (0.0-0.1); BASOPHILS % (AUTO) 1.3 %; EOSINOPHILS # (AUTO) 0.3 10^3/uL (0.0-0.7); EOSINOPHILS % (AUTO) 3.3 %; HCT - HEMATOCRIT 40.8 % (42.0-52.0); HGB - HEMOGLOBIN 14.2 g/dL (14.0-18.0); LYMPHOCYTES # (AUTO) 2.6 10^3/uL (1.5-3.5); LYMPHOCYTES % (AUTO) 27.5 %; MEAN CORPUSCULAR HEMOGLOBIN 30.5 pg (27.0-31.0); MEAN CORPUSCULAR HGB CONC 34.8 g/dL (32.0-36.0); MEAN CORPUSCULAR VOLUME 87.7 fL (80.0-94.0); MEAN PLATELET VOLUME 10.8 fL (7.4-11.4); MONOCYTES # (AUTO) 0.8 10^3/uL (0.0-1.0); MONOCYTES % (AUTO) 8.5 %; NEUTROPHILS # (AUTO) 5.6 10^3/uL (1.5-6.6); NEUTROPHILS % (AUTO) 59.2 %; PLT - PLATELET COUNT 227 10^3/uL (130-450); RED BLOOD COUNT 4.65 10^6/uL (4.70-6.10); RED CELL DISTRIBUTION WIDTH 13.2 % (12.0-15.0); WHITE BLOOD COUNT 9.5 x10^3/uL (4.8-10.8)
[2023-07-04 18:55] LABS: THYROID STIMULATING HORMONE 2.48 uIU/mL (0.34-5.60)
[2023-07-04 18:58] LABS: ALBUMIN 3.7 g/dL (3.2-5.5); ALBUMIN/GLOBULIN RATIO 1.2 (1.0-2.2); ALKALINE PHOSPHATASE 150 IU/L (42-121); ALT ALANINE AMINOTRANSFERASE 107 IU/L (10-60); AST ASPARTATE AMINOTRANSFERASE 50 IU/L (10-42); BILIRUBIN,TOTAL 0.4 mg/dL (0.2-1.0); BUN - BLOOD UREA NITROGEN 30 mg/dL (6-20); CALCIUM 10.8 mg/dL (8.5-10.3); CARBON DIOXIDE - CO2 33 mmol/L (21-32); CHLORIDE 102 mmol/L (101-111); CHOL/HDL RATIO 2.7 (<5.0); CHOLESTEROL 196 mg/dL; GFR - MDRD 80 (>89); GLUCOSE 110 mg/dL (74-104); HDL CHOLESTEROL 73 mg/dL; LDL CHOLESTEROL,CALCULATED 93 mg/dL; LDL/HDL RATIO 1.3 (<3.6); POTASSIUM 3.6 mmol/L (3.5-4.5); SODIUM 139 mmol/L (135-145); TOTAL PROTEIN 6.8 g/dL (6.4-8.9); TRIGLYCERIDES 151 mg/dL (48-352); VLDL CHOLESTEROL 30 mg/dL
== END 2023-07-04 10:40 | disposition home or self-care (01) ==
LOC: LAB.N 10:39
PROVIDERS: ATTEND Physician Assistant Medical
DX: Z00.00 Encounter for general adult medical examination without abnormal findings (principal); Z12.5 Encounter for screening for malignant neoplasm of prostate
CPT/HCPCS: 36415; 80050; 80061; 83721; 84153

== ENCOUNTER 2023-07-19 12:47 | Outpatient (CLI) | payer MEDICAID ==
--- NOTE | 2023-07-21 11:41 | MRI Report ---
PROCEDURE: Shoulder RT WO INDICATIONS: BICEP TENDO RUPTURE TECHNIQUE: Noncontrast oblique coronal T2 fast spin echo with fat saturation, oblique sagittal T1 spin echo and T2 fast spin echo with fat saturation, axial T1 spin echo and T2 fast spin echo with fat saturation a nd 3-D gradient echo through the shoulder. COMPARISON: Right shoulder radiographs 04/21/2023 and 12/04/2020. Right shoulder MRI 09/21/2014 FINDINGS: Image quality: Excellent. Rotator cuff: There is full-thickness tearing of the anterior supraspinatus tendon at the insertion measuring approximately 0.7 cm in anteroposterior dimension with proximal tendon retraction measuring up to 2.6 cm. High-grade partial articular sided tearing is seen at the posterior supraspinatus tend on and anterior infraspinatus tendon at the distal insertions with delamination and proximal retracti on of articular sided fibers by approximately the same amount. The teres minor tendon is intact. Ther e is moderate subscapularis tendinosis. No significant rotator cuff muscle atrophy is seen. Bones and bursae: No acute trabecular bone injury or fracture. Chronic traction cystic changes are se en at the posterosuperior humeral head and the greater tuberosity near the rotator cuff tendon insert ions. There is mild partial thickness cartilage irregularity in the glenohumeral joint. Mild to moder ate degenerative changes are seen at the acromioclavicular joint. A small amount of fluid in the seen in the subacromial/subdeltoid bursa that communicates with the glenohumeral joint space. Capsule and soft tissues: There is chronic nondisplaced tearing of the posterosuperior to posteroinfe rior labrum. Proximal biceps long head tendon is completely torn and distally retracted. There is eff acement of the normal fat signal in the rotator interval. The anterior band of the inferior glenohume ral ligament and the middle glenohumeral ligament appear thickened. IMPRESSION: 1.Full-thickness tearing supraspinatus tendon at the anterior insertion measuring approximately 0.7 c m in anteroposterior dimension with up to 2.6 cm of proximal tendon retraction. There is also high-gr lalo partial articular sided tearing of the posterior supraspinatus and anterior infraspinatus tendons at their distal insertions with delamination and proximal retraction of articular sided fibers. 2.Moderate subscapularis tendinosis. 3.Complete tearing and distal retraction of the proximal biceps long head tendon. 4.Chronic nondisplaced tearing of the posterosuperior to posteroinferior labrum. 5.Mild to moderate acromioclavicular joint osteoarthrosis. 6.Small amount of fluid in the subacromial/subdeltoid bursa communicates with the glenohumeral joint space. 7.Partial effacement of the rotator interval fat and mild thickening of the inferior glenohumeral lig ament are nonspecific, but can be seen in the setting of the clinical syndrome of adhesive capsulitis . Reviewed by: Gigi Bashir MD on 07/21/2023 11:40 AM PST Approved by: Gigi Bashir MD on 07/21/2023 11:40 AM PST Station ID: [id number]
== END 2023-07-19 12:48 | disposition home or self-care (01) ==
LOC: DI 12:47
PROVIDERS: ATTEND Physician Assistant Surgical
DX: S46.011A Strain of muscle(s) and tendon(s) of the rotator cuff of right shoulder, initial encounter (principal); M75.81 Other shoulder lesions, right shoulder; S46.811A Strain of other muscles, fascia and tendons at shoulder and upper arm level, right arm, initial encounter; M75.51 Bursitis of right shoulder; S43.491D Other sprain of right shoulder joint, subsequent encounter